=== PATIENT | female | born 1995 | race African-American/Black ===

== ENCOUNTER 2018-10-31 21:44 | Emergency (ER) | payer OTHER ==
[2018-10-31 22:37] LABS: ABS Eosinophils 0.1 10^3/ul (0-0.6); ABS Lymphocytes 2.4 10^3/ul (1.0-4.8); ABS Monocytes 0.4 10^3/ul (0-0.8); ABS Neutrophils 2.7 10^3/ul (1.5-7.7); Hematocrit 39 % (35-47); Hemoglobin 12.9 g/dL (12.0-16.0); Lymphocyte % 42.6 %; Mean Corpuscular HGB Conc 34 g/dL (31-36); Mean Corpuscular Hemoglobin 28 pg (27-31); Mean Corpuscular Volume 84 fL (80-97); Nucleated Red Blood Cells % 0.1; Platelet Count 193 10^3/uL (150-450); Red Blood Count 4.58 10^6 /uL (3.70-4.87); Red Cell Distribution Width 14 % (10-15); White Blood Count 5.6 10^3/uL (3.5-10.8)
[2018-10-31 22:55] LABS: ALT 16 U/L (7-52); AST 17 U/L (13-39); Albumin 4.1 g/dL (3.2-5.2); Albumin/Globulin Ratio 1.5 (1-3); Alkaline Phosphatase 64 U/L (34-104); Anion Gap 4 mmol/L (2-11); Blood Urea Nitrogen 13 mg/dL (6-24); CO2 Carbon Dioxide 26 mmol/L (22-32); Calcium 9.3 mg/dL (8.6-10.3); Chloride 105 mmol/L (101-111); EGFR African American 91.2 (>60); EGFR Non-African American 75.4 (>60); Globulin 2.7 g/dL (2-4); Glucose 82 mg/dL (70-100); Potassium 4.1 mmol/L (3.5-5.0); Sodium 135 mmol/L (135-145); Total Protein 6.8 g/dL (6.4-8.9)
[2018-10-31 23:02] LABS: HCG Pregnancy < 0.60 mIU/mL
--- NOTE | 2018-10-31 23:08 | ED ---
Abdominal Pain/Female - HPI Summary HPI Summary: The patient is a 23 y/o F presenting to [facility] with right flank pain sudden onset tonight around 1800. She reports that the pain is present in the right flank and RLQ and has been constantly present over the last few hours without worsening. She denies any nausea, vomiting, dysuria, hematuria, or increased urinary frequency. The current sharp pain is rated 7/10 in severity. She is concerned because she was dx with right-sided kidney stone about a month and a half ago incidentally after straining her hip and having imaging done, but she hasnt seen an urologist yet and didnt have any abdominal pain then. She isnt sure if she has passed the stone. She states that she did not exert herself much today as she had been a work primarily sitting for the most part. LNMP: one week ago. Contraceptives but no other medications. PMHx: hernia removal age 8. Nonsmoker, no EtOH, no substance use. - History of Current Complaint Chief Complaint: EDAbdPain Stated Complaint: ABD PAIN PER PT Time Seen by Provider: 10/31/18 23:00 Hx Obtained From: Patient Onset/Duration: Sudden Onset, Lasting Hours - since 1800 tonight, Still Present Timing: Constant Severity Initially: Moderate Severity Currently: Moderate Pain Intensity: 7 Pain Scale Used: 0-10 Numeric Location: Discrete At: RLQ, Flank - right Radiates: No Character: Sharp Aggravating Factor(s): Nothing Alleviating Factor(s): Nothing Associated Signs and Symptoms: Negative: Urinary Symptoms - including dysuria, hematuria, or increased frequency, Nausea, Vomiting Allergies/Adverse Reactions: Allergies Allergy/AdvReac Type Severity Reaction Status Date / Time No Known Allergies Allergy Verified 03/23/18 10:59 PMH/Surg Hx/FS Hx/Imm Hx Endocrine/Hematology History: Denies: Hx Diabetes Cardiovascular History: Denies: Hx Hypertension, Hx Pacemaker/ICD History: Reports: Hx Kidney Stones - right sided Denies: Hx Renal Disease Sensory History: Denies: Hx Hearing Aid Psychiatric History: Denies: Hx Panic Disorder - Surgical History Surgical History: Yes Surgery Procedure, Year, and Place: HERNIA CHILD. WISDOM TEETH Infectious Disease History: No Infectious Disease History: Denies: Traveled Outside the [place] in Last 30 Days - Family History Known Family History: Positive: Hypertension - Social History Alcohol Use: None Hx Substance Use: No Substance Use Type: Reports: None Hx Tobacco Use: No Smoking Status (MU): Never Smoked Tobacco Review of Systems Positive: Abdominal Pain - RLQ and right flank. Negative: Vomiting, Nausea Negative: dysuria, frequency, hematuria All Other Systems Reviewed And Are Negative: Yes Physical Exam - Summary Physical Exam Summary: Appearance: Well-appearing, Well-nourished, lying in bed comfortably Skin: Warm, dry, no obvious rash Eyes: sclera anicteric, no conjunctival pallor ENT: mucous membranes moist, pharynx appears normal Neck: Supple, nontender Respiratory: Clear to auscultation, no signs of respiratory distress Cardiovascular: Normal S1, S2. No murmurs. Normal distal pulses in tibial and radial bilaterally. Abdomen: Soft, mild RLQ tenderness, no peritoneal signs, normal active bowel sounds present Musculoskeletal: Normal, Strength/ROM Intact Neurological: A&Ox3, awake and alert, mentation is normal, speech is fluent and appropriate Psychiatric: affect is normal, does not appear anxious or depressed Triage Information Reviewed: Yes Vital Signs On Initial Exam: Initial Vitals Temp Pulse Resp BP Pulse Ox 99.0 F 86 12 117/71 100 10/31/18 21:47 10/31/18 21:47 10/31/18 21:47 10/31/18 21:47 10/31/18 21:47 Vital Signs Reviewed: Yes Diagnostics - Vital Signs Vital Signs Temp Pulse Resp BP Pulse Ox 10/31/18 21:47 99.0 F 86 12 117/71 100 - Laboratory Lab Results: Lab Results 10/31/18 10/31/18 Range/Units 22:25 22:25 WBC 5.6 (3.5-10.8) 10^3/uL RBC 4.58 (3.70-4.87) 10^6 /uL Hgb 12.9 (12.0-16.0) g/dL Hct 39 (35-47) % MCV 84 (80-97) fL MCH 28 (27-31) pg MCHC 34 (31-36) g/dL RDW 14 (10-15) % Plt Count 193 (150-450) 10^3/uL MPV 8.0 (7.4-10.4) fL Neut % (Auto) 48.4 % Lymph % (Auto) 42.6 % Island % (Auto) 7.5 % Eos % (Auto) 1.0 % Baso % (Auto) 0.5 % Absolute Neuts (auto) 2.7 (1.5-7.7) 10^3/ul Absolute Lymphs (auto) 2.4 (1.0-4.8) 10^3/ul Absolute Monos (auto) 0.4 (0-0.8) 10^3/ul Absolute Eos (auto) 0.1 (0-0.6) 10^3/ul Absolute Basos (auto) 0.0 (0-0.2) 10^3/ul Absolute Nucleated RBC 0.0 10^3/ul Nucleated RBC % 0.1 Sodium 135 (135-145) mmol/L Potassium 4.1 (3.5-5.0) mmol/L Chloride 105 (101-111) mmol/L Carbon Dioxide 26 (22-32) mmol/L Anion Gap 4 (2-11) mmol/L BUN 13 (6-24) mg/dL Creatinine 0.93 (0.51-0.95) mg/dL Est GFR ( Amer) 91.2 (>60) Est GFR (Non-Af Amer) 75.4 (>60) BUN/Creatinine Ratio 14.0 (8-20) Glucose 82 (70-100) mg/dL Calcium 9.3 (8.6-10.3) mg/dL Total Bilirubin 0.30 (0.2-1.0) mg/dL AST 17 (13-39) U/L ALT 16 (7-52) U/L Alkaline Phosphatase 64 (34-104) U/L Total Protein 6.8 (6.4-8.9) g/dL Albumin 4.1 (3.2-5.2) g/dL Globulin 2.7 (2-4) g/dL Albumin/Globulin Ratio 1.5 (1-3) Lipase 31 (11.0-82.0) U/L Beta HCG, Quant < 0.60 mIU/mL Result Diagrams: 10/31/18 22:25 10/31/18 22:25 Lab Statement: Any lab studies that have been ordered have been reviewed, and results considered in the medical decision making process. - CT Abd/Pel CT CT Interpretation Completed By: Radiologist Summary of CT Findings: Impression: 1. No acute findings. 2. Lesion in the left adnexa which is a combination of fluid, fat and calcification. This may represent a dermoid or teratoma. ED physician has reviewed this radiology report. Re-Evaluation - Re-Evaluation First Eval Re-Evaluation Time: 12:05 Comment: We discussed findings thus far. I recommended Abd/Pel CT to further rule out obstructing kidney stone or other possibilities. Second Eval Re-Evaluation Time: 03:32 Comment: We discussed CT results and discharge plan. Abdominal Pain Fem Course/Dx - Course Course Of Treatment: Patient is a 23 y/o F with cc of sudden onset right flank and RLQ pain tonight starting around 1800. Denies any nausea, vomiting, dysuria , hematuria, or increased urinary frequency. Hx of right renal calculi without urology follow-up almost two months ago and unsure if stone has been passed. Hernia removal but no other abd surgery. Upon physical exam, the patient exhibits mild RLQ tenderness without peritoneal signs. Blood work within normal limits. UA reveals trace leukocyte esterase and squamous epithelial cells but is otherwise negative. We will order an abdominopelvic CT to further attempt to explain the patient's current symptom complex. Abdominopelvic CT with contrast reveals lesion in the left adnexa possibly representing a dermoid or teratoma. She will be discharged home with follow up with her paper reel operator for possible dermoid cyst. She understands and agrees with this plan. - Diagnoses Provider Diagnoses: Abdominal pain Discharge - Sign-Out/Discharge Documenting (check all that apply): Patient Departure - Patient will be discharged home. Patient Received Moderate/Deep Sedation with Procedure: No - Discharge Plan Condition: Good Disposition: HOME Patient Education Materials: Xiao (ED) Referrals: Jeanette Billingsley MD [Primary Care Provider] - Additional Instructions: Return to the emergency department for any new or worsening symptoms. Your CT scan did not show any signs of appendicitis or other serious problem in the abdomen or pelvis. There was an incidental finding of what appears to be a dermoid cyst near the left ovary. This was seen on a prior MRI study from March and looks stable. I would recommend an evaluation by a paper reel operator at your convenience to see if anything need be done about this. - Billing Disposition and Condition Condition: GOOD Disposition: Home - Attestation Statements Document Initiated by Edyta: Yes Documenting Scribe: Marlene Padilla Provider For Whom Edyta is Documenting (Include Credential): Dr. Elgin Wilde MD Scribe Attestation: I, Marlene Padilla, scribed for Dr. Elgin Wilde MD on 11/01/18 at 0653. Scribe Documentation Reviewed: Yes Provider Attestation: The documentation as recorded by the Marlene winchester accurately reflects the service I personally performed and the decisions made by me, Dr. Elgin Wilde MD Status of Scribe Document: Viewed
[2018-10-31 23:52] LABS: Urine Appearance Cloudy; Urine Bacteria Absent (Absent); Urine Bilirubin Negative (Negative); Urine Blood Negative (Negative); Urine Color Yellow; Urine Glucose Negative (Negative); Urine Ketones Negative (Negative); Urine Nitrite Negative (Negative); Urine Protein Negative (Negative); Urine Red Blood Cell Absent (Absent); Urine Specific Gravity 1.014 (1.010-1.030); Urine Squamous Epithelial Cell Present (Absent); Urine Urobilinogen Negative (Negative); Urine White Blood Cell Trace(0-5/hpf) (Absent)
[2018-11-01] MEDS ORDERED: Iohexol 300* (CONTRAST) 10 ML SDV IV ONE (02:10)
[2018-11-01 03:46] VITALS: BP 0/0
== END 2018-11-01 03:44 | disposition home or self-care (01) ==
LOC: ED 21:44
DX: R10.31 Right lower quadrant pain (principal)
CPT/HCPCS: 36415; 74177; 80053; 81003; 81015; 83690; 84702; 85025; 87086; 99282